=== PATIENT | female | born 1980 | race Caucasian/White ===

== ENCOUNTER 2017-10-19 07:56 | Day surgery (SDC) | payer BC ==
[~2017-10-19 07:56] MED LIST: Bupivacaine 25%/EPINEPHrine/PF 30 ML ONE
--- NOTE | 2017-10-19 08:36 | PCM.PREANE ---
Preanesthetic Assessment - Anesthesia/Transfusion/Family Hx Anesthesia History: Prior Anesthesia Reaction Type of Anesthesia Reaction: Excessive Nausea/Vomiting Family History of Anesthesia Reaction: No Transfusion History: No Prior Transfusion(s) Intubation History: Unknown - Review of Systems General: No Symptoms Pulmonary: No Symptoms Cardiovascular: No Symptoms Gastrointestinal: No Symptoms Neurological: No Symptoms Other: Reports: None - Physical Assessment Height: 1.7 m Weight: 79.379 kg ASA Class: 2 Mental Status: Alert & Oriented x3 Airway Class: Mallampati = 2 Dentition: Reports: Normal Dentition Thyro-Mental Finger Breadths: 3 Mouth Opening Finger Breadths: 2 ROM/Head Extension: Full Lungs: Clear to Auscultation, Normal Respiratory Effort Cardiovascular: Regular Rate, Regular Rhythm - Allergies Allergies/Adverse Reactions: Allergies Allergy/AdvReac Type Severity Reaction Status Date / Time adhesive tape Allergy Rash Verified 10/13/17 15:52 Penicillins Allergy Hives Verified 10/13/17 15:54 strawberry Allergy Hives Verified 10/13/17 15:54 - Blood Blood Available: No - Anesthesia Plan Pre-Op Medication Ordered: None - Acknowledgements Anesthesia Type Planned: General Anesthesia Pt an Appropriate Candidate for the Planned Anesthesia: Yes Alternatives and Risks of Anesthesia Discussed w Pt/Guardian: Yes Pt/Guardian Understands and Agrees with Anesthesia Plan: Yes PreAnesthesia Questionnaire Other HEENT History: wears glasses Musculoskeletal History: Reports: Fracture Other Musculoskeletal History: hx of fx left leg Neurological History: Reports: Other (See Below) Other Neuro History: hx of motion sickness Oncologic (Cancer) History: Reports: Basal Cell Carcinoma, Malignant Melanoma ( excision in 12/14) - Past Surgical History Other Oncologic Surgeries/Procedures: basal cell removed from scalp/neck area, melanoma removed from sternum (had bilateral axillary lymph node excision) - SUBSTANCE USE Smoking Status *Q: Never Smoker Recreational Drug Use History: No - HOME MEDS Home Medications: Home Meds . [No Known Home Meds] 10/13/17 [History] - CURRENT (IN HOUSE) MEDS Current Meds: Current Medications Hydrocodone Bitart/Acetaminophen (Cotuit 325-5 Mg) 1 tab PO Q4H PRN PRN Reason: Pain Bupivacaine HCl/Epinephrine Bitart (Marcaine 0.25%/Epinephrine 1:200,000) 30 ml INJECT ONETIME ONE Stop: 10/19/17 09:01 Clindamycin Phosphate 600 mg/ (Premix) 50 mls @ 150 mls/hr IV ONETIME ONE Stop: 10/19/17 09:19 Lactated Ringer's (Ringers, Lactated) 1,000 mls @ 125 mls/hr IV ASDIRECTED MADELYN Discontinued Medications Bupivacaine HCl/Epinephrine Bitart (Sensorc Mpf 0.25%-Epi [id number]) Confirm Administered Dose 30 mls @ as directed .ROUTE .STK-MED ONE Stop: 10/19/17 07:21
[2017-10-19] MEDS ORDERED: Scopolamine 1.5 MG Transdermal Patch TRDERM PRN (08:37)
[2017-10-19] MEDS: Clindamycin Phosphate in D5W 600 MG in Premix Bag 1 BAG IV ONE ×4 (08:42→08:43)
[2017-10-19] MEDS ORDERED: Propofol 200 MG/20 ML SDV ONE ×2 (08:53→09:43)
[2017-10-19] MEDS ORDERED: Ondansetron 4 MG/2 ML SDV ONE ×2 (08:53→09:47)
[2017-10-19] MEDS ORDERED: Lidocaine 2% 5 ML SDV ONE ×2 (08:53→09:42)
[2017-10-19] MEDS ORDERED: fentaNYL 100 MCG/2 ML SDV ONE ×2 (08:53→09:45)
[2017-10-19] MEDS ORDERED: Bupivacaine 0.25%/EPINEPHrine 1:200,000 10 ML SDV INJECT ONE (09:00)
[2017-10-19] MEDS ORDERED: Lactated Ringers 1,000 ML IV SCH (09:00)
[2017-10-19] MEDS ORDERED: Midazolam 1 MG/ML 2 ML SDV ONE (09:47)
[2017-10-19] MEDS ORDERED: Acetaminophen/HYDROcodone 325-5 MG Tab PO PRN (10:00)
[2017-10-19] MEDS ORDERED: fentaNYL 100 MCG/2 ML SDV IVPUSH PRN (10:58)
[2017-10-19] MEDS ORDERED: HYDROmorphone 2 MG/ML Syringe ONE (12:02)
--- NOTE | 2017-10-25 08:34 | PCM.OPNOTE ---
- General Post-Op/Procedure Note Date of Surgery/Procedure: 10/19/17 Operative Procedure(s): revision of chest scar - complex closure 15cm Pre Op Diagnosis: hypertrophic painful scar on chest Post-Op Diagnosis: Same Anesthesia Technique: General LMA, Local Primary Surgeon: Cathie Acuna Housing Assistant: Georgia Hebert Complications: None Condition: Good
--- NOTE | 2017-10-26 22:17 | OR ---
SURGEON: KATRINA PETER MD DATE OF PROCEDURE: 10/19/2017 PREOPERATIVE DIAGNOSIS: Chest scar painful, hypertrophic. POSTOPERATIVE DIAGNOSIS: Chest scar painful, hypertrophic. PROCEDURE: Revision of chest scar complex closure 15 cm. INDICATIONS: Ms. Escobar is a 37-year-old female, who unfortunately has had a melanoma excision on her chest that resulted in a poor scar. Risks and benefits of her scar revision were discussed with her and she was in agreement to proceed. Risks were including, but not limited to, bleeding, infection, damage to underlying or overlying structures, possible need for future interventions, possible scarring. PROCEDURE IN DETAIL: After informed consent was obtained and placed on the chart, the patient was brought to the operating theater and laid in supine position. After adequate general anesthetic was obtained, the area was prepped and draped and time-out was completed to confirm side and site. Attention was then paid to injection of local anesthesia and the scar itself was excised. Once adequately excised, meticulous hemostasis was obtained and undermining was taken care of laterally on the superior chest aspect. Minimal undermining was undertaken on the inferior in order to not bring the breast further together. Once adequately freed up and meticulous hemostasis had been obtained, the area was copiously irrigated. The scar was sent for pathology and then attention was paid to closure. Deep PDS sutures were used to take tension on the fascia closure in [id number] fashion and once these were closed, deep 2-0 PDS STRATAFIX sutures were used for the fascial layer and deep 3-0 Monocryl stitches STRATAFIX were used for the dermis. Once adequately closed, attention was then paid to closure of the skin using a 4-0 Monocryl STRATAFIX suture. The perineal wound care closure system was then laid over the top and set in place. Once this was completed, the wound was dressed with fluffs and a compression binder. The patient tolerated this well and all counts and needles were correct at the end of the case. Total length of closure was complex closure of 15 cm. FOLLOWUP INSTRUCTIONS: The patient will see us in clinic in approximately 1 week or sooner if any problems, questions, or concerns. PRIMARY SURGEON: SECONDARY SURGEON: FIBREGLASS LAY UP WORKER: REASON FIBREGLASS LAY UP WORKER WAS NECESSARY: ROLE OF FIBREGLASS LAY UP WORKER: JUAN / NADIYA /[id number]
== END 2017-10-19 13:25 | disposition home or self-care (01) ==
LOC: MW.SDS 07:56
PROVIDERS: ATTEND Plastic Surgery
DX: L90.5 Scar conditions and fibrosis of skin (principal); L91.0 Hypertrophic scar; Z88.0 Allergy status to penicillin; Z91.09 Other allergy status, other than to drugs and biological substances; Z91.018 Allergy to other foods
CPT/HCPCS: 13101; 13102; 81025; 88302; A9270; J2250; J2405; J3010; J7120; 00400; J1170; J2704

== ENCOUNTER 2022-03-23 10:19 | Emergency (ER) | payer BC ==
[2022-03-23] MEDS ORDERED: diphenhydrAMINE 50 MG/ML SDV IVPUSH ONE (10:28)
[2022-03-23] MEDS ORDERED: methylPREDNISolone Sodium Succinate 125 MG/2 ML SDV IVPUSH ONE (10:28)
[2022-03-23] MEDS ORDERED: Famotidine 20 MG/2 ML SDV IVPUSH ONE (10:28)
[2022-03-23] MEDS ORDERED: predniSONE 10 MG Tab PO ONE (14:40)
== END 2022-03-23 14:48 | disposition home or self-care (01) ==
LOC: MW.ED 10:19
DX: T78.3XXA Angioneurotic edema, initial encounter (principal); Z88.0 Allergy status to penicillin; Z91.048 Other nonmedicinal substance allergy status; Z91.018 Allergy to other foods
CPT/HCPCS: 96374; 96375; 99283; A9270; J1200; J2930; J3490

== ENCOUNTER 2023-09-01 07:27 | Day surgery (SDC) | payer BC ==
[~2023-09-01 07:27] MED LIST changes: -Bupivacaine 25%/EPINEPHrine/PF 30 ML ONE; +Lactated Ringers 1,000 ML IV SCH; +Sodium Chloride 0.9% 10 ML Syringe FLUSH PRN; +Sodium Chloride 0.9% 2.5 ML Syringe FLUSH PRN; +Sodium Chloride 0.9% 20 ML SDV IV PRN
[2023-09-01] MEDS ORDERED: Lidocaine 2% 5 ML SDV ONE (09:08)
[2023-09-01] MEDS ORDERED: Propofol 200 MG/20 ML SDV ONE (09:08)
[2023-09-01] MEDS ORDERED: Ondansetron 4 MG/2 ML SDV ONE (09:14)
== END 2023-09-01 10:24 | disposition home or self-care (01) ==
LOC: MW.SDS 07:27
PROVIDERS: ATTEND Surgery
DX: Z12.11 Encounter for screening for malignant neoplasm of colon (principal); K57.30 Diverticulosis of large intestine without perforation or abscess without bleeding; K64.3 Fourth degree hemorrhoids; Z88.0 Allergy status to penicillin; Z79.899 Other long term (current) drug therapy; Z91.048 Other nonmedicinal substance allergy status
CPT/HCPCS: 45378; 81025; J2405; J2704; J7120; J3490

== ENCOUNTER 2024-12-05 10:28 | Emergency (ER) | payer BC ==
[2024-12-05] MEDS: Triamcinolone Acetonide 40 MG/ML 1 ML SDV IM ONE (10:51)
[2024-12-05] MEDS: EPINEPHrine 1 MG/1 ML Amp IM ONE (10:51)
== END 2024-12-05 11:44 | disposition home or self-care (01) ==
LOC: MW.ED 10:28
DX: T78.3XXA Angioneurotic edema, initial encounter (principal); Z88.0 Allergy status to penicillin; Z91.018 Allergy to other foods; Z91.048 Other nonmedicinal substance allergy status; Z79.899 Other long term (current) drug therapy
CPT/HCPCS: 96372; 99284; J0171; J3301

== ENCOUNTER 2025-01-23 08:11 | Emergency (ER) | payer BC ==
[2025-01-23] MEDS: Triamcinolone Acetonide 40 MG/ML 1 ML SDV INJECT ONE (09:43)
== END 2025-01-23 10:46 | disposition home or self-care (01) ==
LOC: MW.ED 08:11
DX: T78.3XXA Angioneurotic edema, initial encounter (principal); Z79.899 Other long term (current) drug therapy; Z91.048 Other nonmedicinal substance allergy status; Z91.018 Allergy to other foods; Z88.0 Allergy status to penicillin
CPT/HCPCS: 96372; 99284; J3301; 99283

== ENCOUNTER 2025-06-19 06:57 | Emergency (ER) | payer BC ==
[2025-06-19] MEDS: methylPREDNISolone Sodium Succinate 40 MG/1 ML SDV IM ONE (07:34)
== END 2025-06-19 08:25 | disposition home or self-care (01) ==
LOC: MW.ED 06:57
DX: T78.3XXA Angioneurotic edema, initial encounter (principal); K13.0 Diseases of lips; Z79.899 Other long term (current) drug therapy; Z88.0 Allergy status to penicillin; Z91.048 Other nonmedicinal substance allergy status; Z91.018 Allergy to other foods
CPT/HCPCS: 96372; 99283; J2919; 99282

== ENCOUNTER 2025-07-04 04:47 | Emergency (ER) | payer BC ==
[2025-07-04 05:03] LABS: BASOPHILS ABSOLUTE AUTO 0.02 K/uL (0.00-0.20); BASOPHILS PERCENT AUTO 0.2 % (0.0-1.0); EOSINOPHILS ABSOLUTE AUTO 0.11 K/uL (0.00-0.45); EOSINOPHILS PERCENT AUTO 1.0 % (0.0-6.0); IMMATURE GRAN ABSOLUTE AUTO 0.03 K/uL (0.00-0.05); IMMATURE GRAN PERCENT AUTO 0.3 % (0.0-0.4); LYMPHOCYTES ABSOLUTE AUTO 2.55 K/uL (1.00-4.80); LYMPHOCYTES PERCENT AUTO 22.3 % (24.0-44.0); MEAN PLATELET VOLUME 9.6 fL (9.4-12.3); MONOCYTES ABSOLUTE AUTO 0.62 K/uL (0.00-0.80); MONOCYTES PERCENT AUTO 5.4 % (0.0-8.0); NEUTROPHILS ABSOLUTE AUTO 8.10 K/uL (1.80-7.70); NEUTROPHILS PERCENT AUTO 70.8 % (41.0-71.0); NRBC ABSOLUTE 0.00 K/uL (0.00-0.02); NRBC PERCENT 0.0 /100WBC (0.0-0.2); PLATELET COUNT,PLT 314 K/uL (150-400); RED BLOOD CELL COUNT 5.17 M/uL (4.10-5.30); WHITE BLOOD CELL COUNT,WBC 11.43 K/uL (3.9-11.3)
[2025-07-04] MEDS: EPINEPHrine 1 MG/ML SDV IM ONE (05:03)
[2025-07-04] MEDS: methylPREDNISolone Sodium Succinate 125 MG/2 ML SDV IVPUSH ONE (05:05)
[2025-07-04] MEDS: diphenhydrAMINE 50 MG/ML SDV IVPUSH ONE (05:05)
[2025-07-04 05:20] LABS: A/G RATIO 1.1 (0.9-1.6); ALANINE AMINOTRANSFERASE,ALT 21.0 IU/L (14-63); ASPARTATE AMNIOTRANSFERASE,AST 17.0 IU/L (15-37); BILIRUBIN TOTAL 0.4 mg/dL (0.2-1.0); BLOOD UREA NITROGEN,BUN 15.0 mg/dL (7.0-18.0); CARBON DIOXIDE,CO2 23.8 mmol/L (21.0-32.0); CHLORIDE,CL 104.0 mmol/L (98-107); CREATININE 1.1 mg/dL (0.6-1.0); EST CRCL DRUG DOSING (CG) 61.48 mL/min; GLUCOSE RANDOM 107.0 mg/dL (74-106); POTASSIUM,K 3.9 mmol/L (3.5-5.1); PROTEIN TOTAL,TP 7.2 g/dL (6.4-8.2); SODIUM,NA 136.0 mmol/L (136-145)
[2025-07-04 05:21] LABS: ESTIMATED GFR 62.0 mL/min (>60)
== END 2025-07-04 06:58 | disposition home or self-care (01) ==
LOC: MW.ED 04:47
DX: R22.1 Localized swelling, mass and lump, neck (principal); L50.9 Urticaria, unspecified; R03.0 Elevated blood-pressure reading, without diagnosis of hypertension; Z79.899 Other long term (current) drug therapy; Z88.0 Allergy status to penicillin; Z91.018 Allergy to other foods; Z91.048 Other nonmedicinal substance allergy status; Z87.892 Personal history of anaphylaxis
CPT/HCPCS: 36415; 80053; 83735; 85025; 96372; 96374; 96375; 99282; 99284-25; J0171; J1200; J2919